=== PATIENT | male | born 1965 | race Caucasian/White ===

== ENCOUNTER → 2016-06-04 | Outpatient (REF) | payer BC ==
[2016-06-04 15:58] LABS: BASOPHILS % (AUTO) 0 % (0-2); EOSINOPHILS % (AUTO) 0 % (0-4); LYMPHOCYTES # (AUTO) 2.5 X10^3; MEAN CORPUSCULAR HEMOGLOBIN 29.6 PG (26.0-34.0); MEAN CORPUSCULAR VOLUME 81 FL (80-100); MEAN PLATELET VOLUME 10.7 FL (6.0-9.5); MONOCYTES # (AUTO) 0.7 X10^3; MONOCYTES % (AUTO) 8 % (3-11); NEUTROPHILS # (AUTO) 5.4 X10^3; NEUTROPHILS % (AUTO) 62 % (51-67); PLATELET COUNT 184 10^3uL (150-450); WHITE BLOOD COUNT 8.61 10^3uL (4.0-11.0)
[2016-06-04 16:07] LABS: ALBUMIN 4.5 g/dL (3.4-5.0); ALKALINE PHOSPHATASE 103 U/L (38-126); ANION GAP 19.4 MEQ/L (3-15); BUN/CREATININE RATIO 21 (10-20); MEAN CORPUSCULAR HGB CONC 36.4 g/dL (31.0-37.0); TOTAL PROTEIN 8.1 g/dL (6.4-8.5)
== END ==
LOC: LAB 15:51
PROVIDERS: ATTEND Internal Medicine
DX: I48.0 Paroxysmal atrial fibrillation (principal); R09.89 Other specified symptoms and signs involving the circulatory and respiratory systems
CPT/HCPCS: 80053; 84443; 84484; 85025; 86140

== ENCOUNTER → 2016-08-19 | Outpatient (CLI) | payer BC ==
[~2016-08-19] MED LIST: HYDR-33 PO; POLY10DR OD; PROP40TA5 PO
== END ==
LOC: RT 08:49
PROVIDERS: ATTEND Internal Medicine
DX: R00.2 Palpitations (principal)
CPT/HCPCS: 93270